=== PATIENT | female | born 1990 | race Two or more races ===

== ENCOUNTER 2020-02-14 06:20 | Emergency (ER) | payer OTHER ==
[2020-02-14] MEDS ORDERED: FAMOTIDINE 20 MG TABLET PO ONE (08:38)
[2020-02-14] MEDS ORDERED: PREDNISONE 20 MG TABLET PO ONE (08:38)
[2020-02-14] MEDS ORDERED: CEPHALEXIN 500 MG CAPSULE PO ONE (08:38)
--- NOTE | 2020-02-14 08:42 | ER Document Report ---
HPI - HPI Patient complains to provider of: Skin rash Time Seen by Provider: 02/14/20 08:20 Onset: Yesterday Onset/Duration: Better Quality of pain: No pain Pain Level: Denies Context: Patient states she was recently started on Macrobid for UTI and yesterday developed hives. Patient states she did take Benadryl and the symptoms improved although they started to return again today. Patient denies any difficulty breathing. Patient denies any abdominal pain, flank pain, nausea or vomiting. Associated Symptoms: Other - Skin rash. denies: Nonproductive cough, Fever, Nausea, Vomiting Exacerbated by: Denies Relieved by: Denies Similar symptoms previously: No Recently seen / treated by doctor: Yes - ROS ROS below otherwise negative: Yes Systems Reviewed and Negative: Yes All other systems reviewed and negative - CONSTITUTIONAL Constitutional: DENIES: Fever, Chills - EENT EENT: DENIES: Sore Throat, Ear Pain, Eye problems - CARDIOVASCULAR Cardiovascular: DENIES: Chest pain - RESPIRATORY Respiratory: DENIES: Trouble Breathing, Coughing - GASTROINTESTINAL Gastrointestinal: DENIES: Abdominal Pain, Nausea, Patient vomiting - URINARY Urinary: DENIES: Dysuria, Urgency, Frequency - REPRODUCTIVE LMP: 01/29/2020 Reproductive: DENIES: : - MUSCULOSKELETAL Musculoskeletal: DENIES: Extremity pain, Back Pain - DERM Skin Color: Normal Skin Problems: None Past Medical History - General Information source: Patient - Social History Smoking Status: Never Smoker Chew tobacco use (# tins/day): No Frequency of alcohol use: Occasional Drug Abuse: None Occupation: Nursing Lives with: Spouse/Significant other Family History: Reviewed & Not Pertinent Patient has homicidal ideation: No - Medical History Medical History: Negative Surgical Hx: Negative Vertical Provider Document - CONSTITUTIONAL Agree With Documented VS: Yes Exam Limitations: No Limitations General Appearance: WD/WN, No Apparent Distress - HEENT HEENT: Atraumatic, Normal ENT Exam, Normocephalic Notes: no angioedema, no potential airway compromise - NECK Neck: Normal Inspection, Supple - RESPIRATORY Respiratory: Breath Sounds Normal, No Respiratory Distress - CARDIOVASCULAR Cardiovascular: Regular Rate, Regular Rhythm, No Murmur - GI/ABDOMEN Gastrointestinal: Abdomen Soft - BACK Back: Normal Inspection - MUSCULOSKELETAL/EXTREMETIES Musculoskeletal/Extremeties: CAROLYN ORTIZ - NEURO Level of Consciousness: Awake, Alert, Appropriate Motor/Sensory: No Motor Deficit - DERM Integumentary: Warm, Dry, Rash - few scattered urticarial lesions to extremities Course - Re-evaluation Re-evalutation: 02/14/20 Patient with few scattered urticarial lesions to extremities, patient without any potential airway compromise. Patient with stable vital signs. Patient without any respiratory distress. Patient without any flank pain or abdominal tenderness, no concern for pyelonephritis. Will change patient's antibiotic and treat symptomatically at this time. Good return precautions discussed with patient. - Vital Signs Vital signs: Temp Pulse Resp BP Pulse Ox 97.7 F 92 14 127/87 H 100 02/14/20 06:33 02/14/20 06:26 02/14/20 06:26 02/14/20 06:26 02/14/20 06:26 Discharge - Discharge Clinical Impression: Hx: UTI (urinary tract infection) Allergic reaction caused by a drug Qualifiers: Encounter type: initial encounter Qualified Code(s): T78.40XA - Allergy, unspecified, initial encounter Condition: Stable Disposition: HOME, SELF-CARE Instructions: Acute Allergic Reaction to Drugs ([facility]), Cephalexin ([facility]), Use of Diphenhydramine, Urinary Tract Infection ([facility]) Additional Instructions: return as needed for any new or worsening symptoms avoid macrobid in the future, list it as an allergy Prescriptions: Prednisone [Deltasone 10 mg Tablet] 10 mg PO ASDIR #21 tablet Cephalexin Monohydrate [Keflex 500 mg Capsule] 500 mg PO BID 5 Days #10 capsule Famotidine [Pepcid 20 mg Tablet] 20 mg PO BID #12 tablet [facility] [Provider Group] - Follow up as needed
[2020-02-14] MEDS ORDERED: PREDNISONE 20 MG TABLET ONE (08:58)
[2020-02-14 09:37] VITALS: BP 130/78
== END 2020-02-14 09:41 | disposition home or self-care (01) ==
LOC: ER 06:20
DX: L50.0 Allergic urticaria (principal); T37.8X5A Adverse effect of other specified systemic anti-infectives and antiparasitics, initial encounter; N39.0 Urinary tract infection, site not specified
CPT/HCPCS: 99283; J7512